=== PATIENT | female | born 1965 | race Caucasian/White ===

== ENCOUNTER 2024-10-08 08:05 | Outpatient (CLI) | payer BC | END 2024-10-08 08:06 | disposition home or self-care (01) | LOC: CT 08:05 | PROVIDERS: ATTEND Otolaryngology Otolaryngic Allergy | DX: E21.3 Hyperparathyroidism, unspecified (principal); K22.89 Other specified disease of esophagus; R59.0 Localized enlarged lymph nodes | CPT/HCPCS: 36415; 70492; 78072; 82565; A9500 ==